=== PATIENT | male | born 1950 | race Caucasian/White ===

== ENCOUNTER 2023-05-18 21:20 | Inpatient (IN) | payer OTHER ==
[~2023-05-18] VITALS: Ht 182.9 cm; Wt 97.1 kg
[2023-05-18 22:19] LABS: BASOPHILS ABSOLUTE AUTO 0.05 K/mm3 (0.00-0.23); BASOPHILS PERCENT AUTO 0 % (0-2); EOSINOPHILS ABSOLUTE AUTO 0.76 K/mm3 (0.00-0.68); EOSINOPHILS PERCENT AUTO 5 % (0-6); Hematocrit 39.7 % (37.0-53.0); Hemoglobin 14.1 g/dL (13.5-17.5); IMMATURE GRAN ABSOLUTE AUTO 0.06 K/mm3 (0.00-0.10); IMMATURE GRAN PERCENT AUTO 0 % (0-1); LYMPHOCYTES ABSOLUTE AUTO 2.28 K/mm3 (0.84-5.20); LYMPHOCYTES PERCENT AUTO 15 % (21-46); MONOCYTES ABSOLUTE AUTO 1.28 K/mm3 (0.16-1.47); MONOCYTES PERCENT AUTO 9 % (4-13); Mean Corpuscular HGB 34.5 pg (26.0-34.0); Mean Corpuscular HGB Conc 35.5 g/dL (31.5-36.5); Mean Corpuscular Volume 97 fL (80-100); Mean Platelet Volume 11.6 fL (9.1-12.4); NEUTROPHILS ABSOLUTE AUTO 10.47 K/mm3 (1.96-9.15); NEUTROPHILS PERCENT AUTO 70 % (41-73); Platelet Count 151 K/mm3 (150-400); RDW Coefficient Variation 12.3 % (11.7-14.2); RDW Standard Deviation 44.1 fL (35.1-46.3); Red Blood Cell Count 4.09 M/mm3 (4.30-5.90)
[2023-05-18 22:38] LABS: Albumin, Blood 3.4 g/dL (3.4-5.0); Albumin/Globulin Ratio 0.7 (0.8-1.8); Bun/Creatinine Ratio 19.7 (12.0-20.0); Calcium, Blood 8.7 mg/dL (8.5-10.1); Creatinine, Blood 0.91 mg/dL (0.60-1.20); Globulin, Blood 4.7 g/dL (2.2-4.0); Potassium, Blood 4.4 mmol/L (3.5-5.5); Total Protein, Blood 8.1 g/dL (6.4-8.2)
[2023-05-19 00:52] LABS: Source, Urine Clean Catch
[2023-05-19 00:55] LABS: Bilirubin, Urine Neg (Neg); Blood, Urine Neg (Neg); Glucose Qualitative, Urine 1+ (Neg); Ketones, Urine Neg (Neg); Leukocyte Esterase, Urine Neg (Neg); Nitrite, Urine Neg (Neg); Protein, Urine 1+ (Neg); Urobilinogen, Urine 4+ (Normal); pH, Urine 6.5 (5.0-8.0)
[2023-05-19 01:03] LABS: Appearance, Urine Clear (Clear); Color, Urine Yellow (P-Yellow)
[2023-05-19 02:30] VITALS: BP 149/72
[2023-05-19] MEDS ORDERED: COMBIVENT RESPIM4 G1 INH (03:51)
[2023-05-19] MEDS ORDERED: ALBU2.5V5 INH (03:52)
[2023-05-19] MEDS ORDERED: ALOGLIPTIN12.5 M1 PO (03:52)
[2023-05-19] MEDS ORDERED: AMLO5 PO (03:53)
[2023-05-19] MEDS ORDERED: GABA300 PO (03:54)
[2023-05-19] MEDS ORDERED: LISI20 PO (03:54)
[2023-05-19] MEDS ORDERED: LORA10ER PO (03:55)
[2023-05-19] MEDS ORDERED: METF500C PO (03:55)
[2023-05-19] MEDS ORDERED: OMEP20ER PO (03:56)
--- NOTE | 2023-05-19 05:43 | NUR ---
SPOKE WITH DR. NICHOLAS CONCERNING ELEVATION OF ST SEGMENT OF TELE PER SYSTEMS DEVELOPER. REVIEWED EKG WITH DR. NICHOLAS. NO FURTHER ORDERS AT THIS TIME. PT HAS NO COMPLAINTS OF CHEST PAIN. COMPLAINS OF SOB, AUDIBLE WHEEZING NOTED. HOME INHALORS ORDER BY DR. NICHOLAS, WILL MONITOR. RESPIRATORY THERAPY REQUESTED TO ADMINISTER FOR PT COMFORT.
[2023-05-19 07:55] VITALS: BP 151/78
[2023-05-19 08:16] LABS: BASOPHILS ABSOLUTE AUTO 0.03 K/mm3 (0.00-0.23); BASOPHILS PERCENT AUTO 0 % (0-2); EOSINOPHILS ABSOLUTE AUTO 0.31 K/mm3 (0.00-0.68); EOSINOPHILS PERCENT AUTO 3 % (0-6); Hematocrit 35.5 % (37.0-53.0); Hemoglobin 12.7 g/dL (13.5-17.5); IMMATURE GRAN ABSOLUTE AUTO 0.04 K/mm3 (0.00-0.10); IMMATURE GRAN PERCENT AUTO 0 % (0-1); LYMPHOCYTES ABSOLUTE AUTO 2.43 K/mm3 (0.84-5.20); LYMPHOCYTES PERCENT AUTO 20 % (21-46); MONOCYTES ABSOLUTE AUTO 1.11 K/mm3 (0.16-1.47); MONOCYTES PERCENT AUTO 9 % (4-13); Mean Corpuscular HGB 34.2 pg (26.0-34.0); Mean Corpuscular HGB Conc 35.8 g/dL (31.5-36.5); Mean Corpuscular Volume 96 fL (80-100); Mean Platelet Volume 11.3 fL (9.1-12.4); NEUTROPHILS ABSOLUTE AUTO 7.99 K/mm3 (1.96-9.15); NEUTROPHILS PERCENT AUTO 67 % (41-73); Platelet Count 131 K/mm3 (150-400); RDW Coefficient Variation 12.2 % (11.7-14.2); RDW Standard Deviation 42.6 fL (35.1-46.3); Red Blood Cell Count 3.71 M/mm3 (4.30-5.90); White Blood Cell Count 11.91 K/mm3 (4.00-11.30)
[2023-05-19 08:35] LABS: Albumin, Blood 2.9 g/dL (3.4-5.0); Albumin/Globulin Ratio 0.7 (0.8-1.8); Bilirubin, Total 1.1 mg/dL (0.1-1.0); Bun/Creatinine Ratio 17.5 (12.0-20.0); Calcium, Blood 8.2 mg/dL (8.5-10.1); Creatinine, Blood 0.86 mg/dL (0.60-1.20); Globulin, Blood 4.4 g/dL (2.2-4.0); Total Protein, Blood 7.3 g/dL (6.4-8.2)
[2023-05-19 15:28] VITALS: BP 143/72
--- NOTE | 2023-05-19 19:46 | NUR ---
spoke to dr myrick, podiatry, this meg, discussed mri finding. states okay to advise pt likely not having surgery, likely will be treated in his office outpatient, likely will manage with antibiotics. okay to eat tomorrow. updated patient and spouse at room. he appears relieved. pt had headache, obtained orders for tylenol. given. pt in good spirits. continuers sba to bathroom as needed. bed in low position, call lite in reach, calls approp
[2023-05-19 20:06] VITALS: BP 141/75
[2023-05-20 03:45] VITALS: BP 150/84
[2023-05-20 05:20] LABS: BASOPHILS ABSOLUTE AUTO 0.04 K/mm3 (0.00-0.23); BASOPHILS PERCENT AUTO 1 % (0-2); EOSINOPHILS ABSOLUTE AUTO 0.39 K/mm3 (0.00-0.68); EOSINOPHILS PERCENT AUTO 4 % (0-6); Hematocrit 36.4 % (37.0-53.0); Hemoglobin 12.6 g/dL (13.5-17.5); IMMATURE GRAN ABSOLUTE AUTO 0.02 K/mm3 (0.00-0.10); IMMATURE GRAN PERCENT AUTO 0 % (0-1); LYMPHOCYTES ABSOLUTE AUTO 1.89 K/mm3 (0.84-5.20); LYMPHOCYTES PERCENT AUTO 21 % (21-46); MONOCYTES ABSOLUTE AUTO 0.76 K/mm3 (0.16-1.47); MONOCYTES PERCENT AUTO 9 % (4-13); Mean Corpuscular HGB 34.1 pg (26.0-34.0); Mean Corpuscular HGB Conc 34.6 g/dL (31.5-36.5); Mean Corpuscular Volume 98 fL (80-100); Mean Platelet Volume 11.6 fL (9.1-12.4); NEUTROPHILS ABSOLUTE AUTO 5.78 K/mm3 (1.96-9.15); NEUTROPHILS PERCENT AUTO 65 % (41-73); Platelet Count 119 K/mm3 (150-400); RDW Coefficient Variation 12.3 % (11.7-14.2); RDW Standard Deviation 44.3 fL (35.1-46.3); White Blood Cell Count 8.88 K/mm3 (4.00-11.30)
--- NOTE | 2023-05-20 05:39 | NUR ---
SHIFT SUMMERY, PT RESTING IN BED TRYING TO SLEEP. PT USING URINAL TOO VOID. PT HAD 1 RT TX ABOUT 0400. CALL LIGHT IN REACH.
[2023-05-20 05:52] LABS: Albumin, Blood 2.9 g/dL (3.4-5.0); Albumin/Globulin Ratio 0.7 (0.8-1.8); Bilirubin, Total 1.1 mg/dL (0.1-1.0); Bun/Creatinine Ratio 16.2 (12.0-20.0); Calcium, Blood 8.5 mg/dL (8.5-10.1); Creatinine, Blood 0.86 mg/dL (0.60-1.20); Globulin, Blood 4.4 g/dL (2.2-4.0); Magnesium, Blood 1.2 mg/dL (1.6-2.4); Phosphorus, Blood 3.6 mg/dL (2.5-4.9); Potassium, Blood 3.9 mmol/L (3.5-5.5); Total Protein, Blood 7.3 g/dL (6.4-8.2)
[2023-05-20 07:56] VITALS: BP 150/77
[2023-05-20 15:53] VITALS: BP 126/74
--- NOTE | 2023-05-20 17:34 | NUR ---
PT QUITE PLEASANT TODAY. FOOD DR STATES NOT NECESSARY TO HAVE SURGERY. CAN TREAT OUT PATIENT. ABX. DR MEZA HOLDING OVERNITE FOR LABS AND EXPECTD/CHG TOMORROW. PT PLEASED. PT TO GO TO PODIATRY FOR FOOT CAST THIS WEEK. NO NEW CONCERNS. SOME IV ABS LATE R/T MAG RUNNING MUCH OF DAY. DID GET TO CHAIR SOME TODAY. ALSO GOT FOAM FOR BED TO MAKE SOME MORE COMFORT. GOT ORDERS FOR PAIN MED PILLS. PT STATE THIS HELPING. BED IN LOW POSITION, CALL LITE IN REACH. CALLS APPROP
[2023-05-20 20:14] VITALS: BP 150/79
[2023-05-21 04:10] VITALS: BP 155/93
--- NOTE | 2023-05-21 04:30 | NUR ---
SHIFT SUMMARY PT REMAINS A/Ox4 AND COOPERATIVE WITH CARE PROVIDED BY MEMBERS OF STAFF. ANSWERS QUESTIONS APPROPRIATELY AND ABLE TO MAKE HIS NEEDS KNOWN. NO ACUTE EVENTS OVERNIGHT FOR PT WAS ABLE TO SLEEP T/O MOST OF THE SHIFT. CARDIAC MONZON, REMAINS IN SR 80-90'S WITH NO C/O CP OR PRESSURE. SBP REMAINS STABLE RANGING 130-150'S. RESPIRATORY MOZNON, MAINTAINS SPO2 >90% ON RA WITH NO C/O SOB OR DYSPNEA LAST NIGHT. ABLE TO IND. USE URINAL AND IS SBA W/BRP. LEFT ANKLE REMAINS A LITTLE SWOLLEN AND WARM TO THE TOUCH. NO SIGNS OF REDNESS GROWING/SPREADING HOWEVER, L FOOT ABSESS CLEAN, DRY AND OPEN TO AIR. PAIN ADEQUATELY CONTROLLED ORDERED VIA EMAR. SCHEDULED ANTIBITOCS GIVEN ORDERED VIA EMAR. POSSIBLE DC THIS AM PER DAYSHIFT REPORT. NO NEW ORDERS AT THIS TIME, WILL REPORT TO ONCOMING RN. LYNSEY PIÑA OF THIS NOTE.
[2023-05-21 06:18] LABS: BASOPHILS ABSOLUTE AUTO 0.05 K/mm3 (0.00-0.23); BASOPHILS PERCENT AUTO 1 % (0-2); EOSINOPHILS ABSOLUTE AUTO 0.88 K/mm3 (0.00-0.68); EOSINOPHILS PERCENT AUTO 9 % (0-6); Hematocrit 36.8 % (37.0-53.0); Hemoglobin 12.9 g/dL (13.5-17.5); IMMATURE GRAN ABSOLUTE AUTO 0.04 K/mm3 (0.00-0.10); IMMATURE GRAN PERCENT AUTO 0 % (0-1); LYMPHOCYTES ABSOLUTE AUTO 2.79 K/mm3 (0.84-5.20); LYMPHOCYTES PERCENT AUTO 27 % (21-46); MONOCYTES ABSOLUTE AUTO 0.83 K/mm3 (0.16-1.47); MONOCYTES PERCENT AUTO 8 % (4-13); Mean Corpuscular HGB 34.5 pg (26.0-34.0); Mean Corpuscular HGB Conc 35.1 g/dL (31.5-36.5); Mean Corpuscular Volume 98 fL (80-100); Mean Platelet Volume 11.1 fL (9.1-12.4); NEUTROPHILS ABSOLUTE AUTO 5.59 K/mm3 (1.96-9.15); NEUTROPHILS PERCENT AUTO 55 % (41-73); Platelet Count 138 K/mm3 (150-400); RDW Coefficient Variation 12.3 % (11.7-14.2); RDW Standard Deviation 44.3 fL (35.1-46.3); Red Blood Cell Count 3.74 M/mm3 (4.30-5.90); White Blood Cell Count 10.18 K/mm3 (4.00-11.30)
[2023-05-21 07:07] LABS: Albumin, Blood 2.9 g/dL (3.4-5.0); Albumin/Globulin Ratio 0.6 (0.8-1.8); Bilirubin, Total 0.9 mg/dL (0.1-1.0); Bun/Creatinine Ratio 12.9 (12.0-20.0); Calcium, Blood 8.6 mg/dL (8.5-10.1); Creatinine, Blood 0.93 mg/dL (0.60-1.20); Globulin, Blood 4.8 g/dL (2.2-4.0); Potassium, Blood 4.1 mmol/L (3.5-5.5); Total Protein, Blood 7.7 g/dL (6.4-8.2)
[2023-05-21 07:59] VITALS: BP 129/70
[2023-05-21] MEDS ORDERED: Acetaminophen650 M1 PO (12:22)
[2023-05-21] MEDS ORDERED: VISBIOME 112.51 EACH PO (12:22)
[2023-05-21] MEDS ORDERED: AMOCLA875 PO (12:23)
--- NOTE | 2023-05-21 15:00 | NUR ---
DISCHARGE SUMMARY: PT AND EDUCATED ON DISCHARGE PLAN AND MEDICATIONS. ASSISTED PT WITH PACKING UP BELONGINGS. ESCORTED PT TO POV WITH VIA WHEELCHAIR.
== END 2023-05-21 14:09 | disposition home or self-care (01) | DRG 872 ==
LOC: ER 21:20 → MEDS 05-19 00:37 → ENPENDDIS 05-21 12:06 → MEDS 05-21 14:09
PROVIDERS: Emergency Medicine; Family Medicine; Student in an Organized Health Care Education/Training Program; ADMIT Internal Medicine
DX: A41.9 Sepsis, unspecified organism (principal); L03.116 Cellulitis of left lower limb; L02.612 Cutaneous abscess of left foot; L97.526 Non-pressure chronic ulcer of other part of left foot with bone involvement without evidence of necrosis; E11.21 Type 2 diabetes mellitus with diabetic nephropathy; I10 Essential (primary) hypertension; J44.9 Chronic obstructive pulmonary disease, unspecified; E11.40 Type 2 diabetes mellitus with diabetic neuropathy, unspecified; E11.621 Type 2 diabetes mellitus with foot ulcer; Z87.891 Personal history of nicotine dependence
CPT/HCPCS: 36415; 71045; 73630; 73718; 80053; 82947; 83605; 83735; 84100; 85025; 87070; 87075; 87077; 87147; 87186; 87205; 93005; 93010; 94640; 94664; 94760; 94762; 96365; 96375; 99285-25; A9270; J2543; J3010; J3370; J3475; J7030; J7050